=== PATIENT | male | born 1965 | race African-American/Black ===

== ENCOUNTER 2017-11-23 17:19 | Emergency (ER) | payer OTHER ==
[~2017-11-23] VITALS: Ht 170.2 cm; Wt 103.4 kg
--- OUTSIDE RECORDS SUMMARY | 2017-11-23 17:21 | XMS REPORT | Clinical Summary ---
Author Author [facility] Address Unknown Phone Unavailable Care Team Providers Care Nurse Transition Name Role Phone PCP Unavailable Allergies No Known Allergies Current Medications Prescription Sig. Disp. Refills Start End Date Status Date lisinopril Take 20 mg by mouth Active (PRINIVIL,ZESTRIL) 20 MG daily. tablet acetaminophen-codeine Take 1-2 tablets by mouth 15 tablet 0 08/25/20 09/04/20 (TYLENOL #3) 300-30 mg every 6 (six) hours as 17 17 per tablet needed for Pain for up to 10 days. Max Daily Amount: 8 tablets cyclobenzaprine Take 1 tablet (10 mg 20 tablet 0 08/25/20 09/04/20 (FLEXERIL) 10 MG tablet total) by mouth 2 (two) 17 17 times daily as needed for Muscle spasms for up to 10 days. Active Problems Not on file Encounters Date Type Specialty Care Team Description 08/25/2017 Emergency Emergency Medicine Radha Gonzalez MD Low back pain without - sciatica, unspecified 08/26/2017 back pain laterality, unspecified chronicity (Primary Dx);Hematuria, unspecified type;Abdominal aortic aneurysm (AAA) without rupture (HCC) after 11/22/2016 Social History Tobacco Use Types Packs/Day Years Used Date Never Smoker Smokeless Tobacco: Never Used Alcohol Use Drinks/Week oz/Week Comments Yes Sex Assigned at Date Recorded Not on file Last Filed Vital Signs Vital Sign Reading Time Taken Blood Pressure 176/90 08/25/2017 10:11 PM [employer] Pulse 76 08/25/2017 10:11 PM [employer]RNAMENT [employer] Temperature 36.8 C (98.2 F) 08/25/2017 8:17 PM ORNAMENT MAK[employer] HAND Respiratory Rate 16 08/25/2017 10:11 PM ORNAMENT MAK[employer] HAND Oxygen Saturation 99% 08/25/2017 10:11 PM ORNAMENT MAKER HAND Inhaled Oxygen - - Concentration Weight 104.8 kg (231 lb) 08/25/2017 8:17 PM ORNAMENT MAK[employer] Height 170.2 cm (5' 7") 08/25/2017 8:17 PM ORNAMENT MAK[employer] HAND Body Mass Index 36.18 08/25/2017 8:17 PM ORNAMENT MAKER HAND Plan of Treatment Not on file Results * CT abdomen/pelvis without iv contrast (08/25/2017 9:46 PM) Specimen Performing Laboratory [employer] Narrative FINAL REPORT CT abdomen and pelvis without intravenous contrast. INDICATION: Hematuria BACK PAIN COMPARISON: No prior studies available for comparison. TECHNIQUE: Multiple contiguous transaxial images of the abdomen and pelvis were obtained without intravenous contrast.This exam was performed according to our departmental dose optimization program which includes automated exposure control, adjustment of the mA and/or kV according to patient size and/or use of iterative reconstructive technique. FINDINGS: Lack of intravenous contrast limits evaluation of the parenchymal and vascular organs. The lung bases demonstrate mild atelectasis. The osseous structures demonstrate mild degenerative changes. The unenhanced liver, spleen, pancreas, and adrenal glands are unremarkable. The gallbladder is unremarkable. There is no biliary dilatation. The stomach is mildly distended containing ingested material. Small fat containing umbilical and upper ventral hernias are noted. Both kidneys demonstrate mild medullary nephrocalcinosis bilaterally without obstructing stones, hydronephrosis or hydroureter. 1.0 cm cysts are seen in the lower pole of the left kidney and upper pole of the right kidney. The urinary bladder is unremarkable. Small fat-containing right inguinal hernia is seen. There is no free fluid in the abdomen and pelvis. There is nonspecific lobulated renal contour specially in the left lower pole. Evaluation for renal or urothelial mass is suboptimal on this noncontrast examination. There is no bowel obstruction or perforation. The appendix appear within normal limits. The small bowel loops are not dilated. There is no fluid collection or lymphadenopathy. Atherosclerotic vascular calcifications are seen with mild aneurysmal dilatation of the abdominal aorta above the aortic bifurcation measuring 3.0 x 2.8 cm. Nonspecific prominent bilateral inguinal lymph nodes are likely reactive or inflammatory in nature. IMPRESSION: 1. Mild medullary nephrocalcinosis without obstructing stones, hydronephrosis or hydroureter. Small renal cysts. 2. Small fat-containing umbilical and upper ventral hernias. 3. Abdominal aortic aneurysm measuring up to 3.0 cm. Recommend follow-up every three years per best practice guidelines. Signed: Caesar Nance MD Report Verified Date/Time:08/25/2017 22:08:12 Reading Location: [facility] [id number] Ortho Consult Reading Room Procedure Note Interface, External Ris In - 08/25/2017 10:10 PM ORNAMENT MAKER HAND FINAL REPORT CT abdomen and pelvis without intravenous contrast. INDICATION: Hematuria BACK PAIN COMPARISON: No prior studies available for comparison. TECHNIQUE: Multiple contiguous transaxial images of the abdomen and pelvis were obtained without intravenous contrast. This exam was performed according to our departmental dose optimization program which includes automated exposure control, adjustment of the mA and/or kV according to patient size and/or use of iterative reconstructive technique. FINDINGS: Lack of intravenous contrast limits evaluation of the parenchymal and vascular organs. The lung bases demonstrate mild atelectasis. The osseous structures demonstrate mild degenerative changes. The unenhanced liver, spleen, pancreas, and adrenal glands are unremarkable. The gallbladder is unremarkable. There is no biliary dilatation. The stomach is mildly distended containing ingested material. Small fat containing umbilical and upper ventral hernias are noted. Both kidneys demonstrate mild medullary nephrocalcinosis bilaterally without obstructing stones, hydronephrosis or hydroureter. 1.0 cm cysts are seen in the lower pole of the left kidney and upper pole of the right kidney. The urinary bladder is unremarkable. Small fat-containing right inguinal hernia is seen. There is no free fluid in the abdomen and pelvis. There is nonspecific lobulated renal contour specially in the left lower pole. Evaluation for renal or urothelial mass is suboptimal on this noncontrast examination. There is no bowel obstruction or perforation. The appendix appear within normal limits. The small bowel loops are not dilated. There is no fluid collection or lymphadenopathy. Atherosclerotic vascular calcifications are seen with mild aneurysmal dilatation of the abdominal aorta above the aortic bifurcation measuring 3.0 x 2.8 cm. Nonspecific prominent bilateral inguinal lymph nodes are likely reactive or inflammatory in nature. IMPRESSION: 1. Mild medullary nephrocalcinosis without obstructing stones, hydronephrosis or hydroureter. Small renal cysts. 2. Small fat-containing umbilical and upper ventral hernias. 3. Abdominal aortic aneurysm measuring up to 3.0 cm. Recommend follow-up every three years per best practice guidelines. Signed: Caesar Nance MD Report Verified Date/Time: 08/25/2017 22:08:12 Reading Location: [facility] C013X Ortho Consult Reading Room * Urinalysis w/Microscopic + Reflex to Culture (08/25/2017 8:51 PM) Component Value Ref Range Color, UA Yellow Clarity, UA Clear Specific [place], UA 1.015 1.001 - 1.035 pH, UA 6.5 5.0 - 8.0 Protein, UA Negative Negative Glucose, UA Negative Negative Ketones, UA Negative Negative Bilirubin, UA Negative Negative Blood, UA Small (A) Negative Nitrite, UA Negative Negative Leukocytes, UA Negative Negative Urobilinogen, UA 1.0 0.2 - 1.0 mg/dL Bacteria, UA Rare Mucus Few RBC, UA 5-10 /HPF WBC, UA <5 /HPF SQUAMOUS EPITHELIAL <5 /HPF Specimen Source Specimen Performing Laboratory Urine [facility] [address] [place] [id number] after 11/22/2016
--- OUTSIDE RECORDS SUMMARY | 2017-11-23 17:21 | XMS REPORT ---
Author Author Admin, [place] Organization [facility] Address Unknown Phone Unavailable Allergies, Adverse Reactions, Alerts Allergy Name Reaction Description Start Date Severity Status Provider No Known Allergies Geoff Rai MA Conditions or Problems Problem Name Problem Code Onset Date Status Entry Date Provider Comment Standard Description Annotate Lumbago with sciatica, right side 724.3 Active Viola Pringle DO Sciatica Exposure to, sexually transmitted disease V01.6 Active Danni Last CAPSULE MACHINE OPERATOR Contact with or exposure to venereal diseases Screening for chlamydial disease V73.98 Active Danni Last CAPSULE MACHINE OPERATOR Screening examination for unspecified chlamydial disease Special screening examination for other specified viral diseases V73.89 07/15 Active Danni Last APRN Screening examination for other specified viral diseases BMI 36.0-36.9 Active Danni aLst CAPSULE MACHINE OPERATOR Body Mass Index 36.0-36.9, adult Encounter for immunization V05.9 Active Danni Last CAPSULE MACHINE OPERATOR Need for prophylactic vaccination and inoculation against unspecified single disease Hypertension 401.9 Active Danni Last CAPSULE MACHINE OPERATOR Unspecified essential hypertension Obesity Active Danni Last CAPSULE MACHINE OPERATOR Obesity, unspecified Onychomycosis, toenails 110.1 Active Danni Last CAPSULE MACHINE OPERATOR Dermatophytosis of nail Swollen limb, left hand ICD-729.81 Inactive Danni Last CAPSULE MACHINE OPERATOR Need for prophylactic vaccination with unspecified combined vaccine ICD-V06.9 Inactive Danni Last CAPSULE MACHINE OPERATOR Cerumen ICD-380.4 Inactive Danni Last APRN 2016 Seasonal allergic rhinitis ICD-477.9 Inactive Danni Last APRN Elevated blood pressure without diagnosis of hypertension 796.2 Inactive Danni Last APRN Elevated blood pressure reading without diagnosis of hypertension Swollen limb, left hand 729.81 Resolved Danni Last APRN Swelling of limb Need for prophylactic vaccination with unspecified combined vaccine V06.9 Resolved Danni Last APRN Need for prophylactic vaccination with unspecified combined vaccine Cerumen 380.4 Resolved Danni Last APRN Impacted cerumen Right Seasonal allergic rhinitis 477.9 Resolved Danni Last APRN Allergic rhinitis, cause unspecified Medication List Medication Instructions Start Date Stop Date Generic Name NDC Status Provider Patient Instruction CYCLOBENZAPRINE HCL 10 MG ORAL TABLET 1 By Mouth three times a day as needed for muscle spasm CYCLOBENZAPRINE HCL 88542916590 Active Viola Pino DO Active NAPROXEN 500 MG ORAL TABLET 1 by mouth twice a day as needed for pain and inflammation NAPROXEN 78066457945 Active Viola Pino DO Active NIFEDIPINE ER 90 MG ORAL TABLET EXTENDED RELEASE 24 HOUR 1 tablet by mouth every day NIFEDIPINE 48936830164 Active Danni Last APRN Active FELODIPINE ER 10 MG ORAL TABLET EXTENDED RELEASE 24 HOUR one tablet by mouth at bedtime FELODIPINE ER 10 MG ORAL TABLET EXTENDED RELEASE 24 HOUR FELODIPINE Inactive AMLODIPINE BESYLATE 10 MG ORAL TABLET 1 tab by mouth daily 01/10 AMLODIPINE BESYLATE 10 MG ORAL TABLET 942569 AMLODIPINE BESYLATE Inactive FLONASE ALLERGY RELIEF 50 MCG/ACT NASAL SUSPENSION 1 spray each nostril Every 12 hours x 14 days. FLONASE ALLERGY RELIEF 50 MCG/ACT NASAL SUSPENSION 4968367 FLUTICASONE PROPIONATE Inactive XYZAL 5 MG ORAL TABLET 1 tablet by mouth at bedtime. XYZAL 5 MG ORAL TABLET 262079 LEVOCETIRIZINE DIHYDROCHLORIDE Inactive IBUPROFEN 800 MG ORAL TABLET TK 1 T PO Q 8 H PRN IBUPROFEN 800 MG ORAL TABLET 215877 IBUPROFEN Inactive FELODIPINE ER 10 MG ORAL TABLET EXTENDED RELEASE 24 HOUR one tablet by mouth at bedtime FELODIPINE 15474839870 No Longer Active Danni Last APRN Active AMLODIPINE BESYLATE 10 MG ORAL TABLET 1 tab by mouth daily 01/10 AMLODIPINE BESYLATE 45270281095 No Longer Active Danni Last APRN Active FLONASE ALLERGY RELIEF 50 MCG/ACT NASAL SUSPENSION 1 spray each nostril Every 12 hours x 14 days. FLUTICASONE PROPIONATE 42315728144 No Longer Active Danni Last APRN Active XYZAL 5 MG ORAL TABLET 1 tablet by mouth at bedtime. LEVOCETIRIZINE DIHYDROCHLORIDE 22681548213 No Longer Active Danni Last APRN Active IBUPROFEN 800 MG ORAL TABLET TK 1 T PO Q 8 H PRN IBUPROFEN 76765099439 No Longer Active Viola Pringle DO Active Advance Directives Directive Description Start Date DISCUSSED - NO DECISION MADE Immunizations Vaccine Administration Date Value Standard Description varicella shingles vaccine given varicella virus vaccine hepatitis A immunization #2 given as Hep A/Hep B # 3. hepatitis A vaccine, unspecified formulation hepatitis B vaccine #3 given as Hep A/Hep B # 3. hepatitis B vaccine, unspecified formulation Twinrix, hepatitis A inactivated and hepatitis B (recombinant) vaccine, 3rd dose, given by given hepatitis A and hepatitis B vaccine hepatitis A immunization #2 given as Hep A/Hep B # 2. hepatitis A vaccine, unspecified formulation hepatitis B vaccine #2 given given as Hep A/Hep B # 2. hepatitis B vaccine, unspecified formulation Twinrix, hepatitis A inactivated and hepatitis B (recombinant) vaccine, 2nd dose, administered by given hepatitis A immunization #1 given as Hep A/Hep B # 1. hepatitis A vaccine, unspecified formulation hepatitis B vaccine #1 given given as Hep A/Hep B # 1. hepatitis B vaccine, unspecified formulation Twinrix, hepatitis A inactivated and hepatitis B (recombinant) vaccine, 1st dose given hepatitis A and hepatitis B vaccine Tetanus toxoid, reduced diphtheria toxoid and acellular Pertussis vaccine, absorbed (TdaP) given given tetanus toxoid, reduced diphtheria toxoid, and acellular pertussis vaccine, adsorbed Vital Signs Date Name Value Unit Range Description blood pressure, diastolic, second observation 107 mm[Hg] BP alas blood pressure, diastolic 107 mm[Hg] BP alas blood pressure, systolic, second observation 151 mm[Hg] BP sys blood pressure, systolic 150 mm[Hg] BP sys height E&M 67 [in_us] Bdy height pulse rate E&M 115 /min Heart rate temperature E&M 98.1 [degF] Body temperature weight E&M 228.50 [lb_av] Weight Measured blood pressure, diastolic, second observation 82 mm[Hg] BP alas blood pressure, diastolic 82 mm[Hg] BP alas blood pressure, systolic, second observation 146 mm[Hg] BP sys blood pressure, systolic 146 mm[Hg] BP sys height E&M 67 [in_us] Bdy height pulse rate E&M 64 /min Heart rate temperature E&M 98.1 [degF] Body temperature weight E&M 229.25 [lb_av] Weight Measured blood pressure, diastolic 89 mm[Hg] BP alas blood pressure, systolic 135 mm[Hg] BP sys height E&M 67 [in_us] Bdy height pulse rate E&M 73 /min Heart rate respiratory rate E&M 19 /min Resp rate temperature E&M 98.4 [degF] Body temperature weight E&M 237 [lb_av] Weight Measured blood pressure, diastolic 98 mm[Hg] BP alas blood pressure, systolic 153 mm[Hg] BP sys pulse rate E&M 60 /min Heart rate respiratory rate E&M 20 /min Resp rate temperature E&M 97.7 [degF] Body temperature blood pressure, diastolic 99 mm[Hg] BP alas blood pressure, systolic 155 mm[Hg] BP sys pulse rate E&M 67 /min Heart rate respiratory rate E&M 20 /min Resp rate temperature E&M 98.6 [degF] Body temperature blood pressure, diastolic, second observation 105 mm[Hg] BP alas blood pressure, diastolic 99 mm[Hg] BP alas blood pressure, systolic, second observation 156 mm[Hg] BP sys blood pressure, systolic 163 mm[Hg] BP sys height E&M 67 [in_us] Bdy height pulse rate E&M 68 /min Heart rate temperature E&M 98.4 [degF] Body temperature weight E&M 237.13 [lb_av] Weight Measured blood pressure, diastolic 105 mm[Hg] BP alas blood pressure, systolic 158 mm[Hg] BP sys height E&M 67 [in_us] Bdy height pulse rate E&M 67 /min Heart rate temperature E&M 98.7 [degF] Body temperature weight E&M 236.80 [lb_av] Weight Measured blood pressure, diastolic 100 mm[Hg] BP alas blood pressure, systolic 151 mm[Hg] BP sys height E&M 67 [in_us] Bdy height pulse rate E&M 70 /min Heart rate temperature E&M 98.2 [degF] Body temperature weight E&M 234.38 [lb_av] Weight Measured blood pressure, diastolic, second observation 98 mm[Hg] BP alas blood pressure, diastolic 90 mm[Hg] BP alas blood pressure, systolic, second observation 150 mm[Hg] BP sys blood pressure, systolic 139 mm[Hg] BP sys height E&M 67 [in_us] Bdy height pulse rate E&M 90 /min Heart rate pulse rate #2 88 Heart rate temperature E&M 97.8 [degF] Body temperature weight E&M 232.38 [lb_av] Weight Measured blood pressure, diastolic 93 mm[Hg] BP alas blood pressure, systolic 148 mm[Hg] BP sys height E&M 67 [in_us] Bdy height pulse rate E&M 65 /min Heart rate temperature E&M 98.1 [degF] Body temperature weight E&M 234.20 [lb_av] Weight Measured Diagnostic Results Date Name Value Unit Range Description Lab Report: RPR, Rfx Qn RPR/Confirm TP, Panel [id number], HIV 1/2 Ab Differe ... - Serology rapid plasma reagin antibody, serum Non Reactive Non Reactive hepatitis C antibody, serum <0.1 0.0-0.9 Lab Report: Ct, Ng, Trich vag by ANNA, Chlamydia/GC Amplification - Lab chlamydia DNA probe Negative Negative Lab Report: Ct, Ng, Trich vag by ANNA, Chlamydia/GC Amplification - Microbiology Neisseria gonorrhoeae DNA probe Negative Negative Lab Report: RPR, Rfx Qn RPR/Confirm TP, Panel [id number], HIV 1/2 Ab Differe ... - Toxicology HIV-2 antibodies, western blot Negative Negative Lab Report: RPR, Rfx Qn RPR/Confirm TP, Panel [id number], HIV 1/2 Ab Differe ... - Chemistry hepatitis B surface antigen Negative Negative Lab Report: RPR, Rfx Qn RPR/Confirm TP, Panel [id number], HIV 1/2 Ab Differe ... - Serology HIV-1/HIV-2 Ab, serum Positive Negative Encounters Date Encounter Provider Code Facility 15:06:32 PAN DUMPER Est Patient Exp Problem - 57858 Viola Pringle CPT -74133 [facility] 14:04:51 CDT Est Patient Detailed - 52354 Danni Last CAPSULE MACHINE OPERATOR CPT- 99793 [facility] 17:03:01 CDT Est Patient Detailed - 83586 Jeannine Muñoz LEGAL SUPPORT ANALYST CPT-91455 [facility] 10:43:40 CDT Est Patient Nurse - Only Visit - 09532 Katerin Briceño REPAIRER EVAPORATOR CPT-30769 [facility] 15:50:52 CDT Est Patient Nurse - Only Visit - 97110 Katerin Briceño REPAIRER EVAPORATOR CPT-79235 [facility] 16:07:39 CDT Est Patient Exp Problem - 61452 Danni Last CAPSULE MACHINE OPERATOR CPT-04320 [facility] 15:58:59 CDT Est Patient Exp Problem - 36626 Danni Last CAPSULE MACHINE OPERATOR CPT-86254 [facility] 15:47:10 CDT Est Patient Exp Problem - 52628 Danni Last CAPSULE MACHINE OPERATOR CPT-71887 [facility] 15:54:39 CDT Est Patient Exp Problem - 89943 Johnnohelia Berhane CAPSULE MACHINE OPERATOR CPT-27576 [facility] 12:09:19 PAN DUMPER New Patient Detailed - 86014 Danni Last CAPSULE MACHINE OPERATOR CPT- 00862 [facility] Procedures Code Procedure Name Date Entry Date Standard Description CPT-J1885 Injection, ketorolac tromethamine (toradol), per 15 mg 08:18:56 PAN DUMPER CPT-J8499 Oral / SL / WV 15:01:01 CDT CPT-J8499 Azithromycin oral 15:01:00 CDT CPT-63362 IM or SQ Injection 15:01:00 CDT CPT-J0696 Injection, ceftriaxone sodium, per 250 mg 15:01:00 CDT CPT-68984 Zoster - Shingles 14:05:05 CDT CPT-24208 Admin of Vaccine - Injection - 1 14:05:05 CDT CPT-00161 Handling of specimen for transfer 14:04:56 CDT CPT-38255 Venipuncture 14:04:55 CDT CPT-15016 Twinrix - Adult 10:43:40 CDT CPT-03597 Admin of Vaccine - Injection - 1 10:43:40 CDT CPT-53403 Twinrix - Adult 15:50:53 CDT CPT-80484 Admin of Vaccine - Injection - 1 15:50:53 CDT CPT-84450 Twinrix - Adult 16:07:41 CDT CPT-87542 Admin of Vaccine - Injection - 1 16:07:41 CDT CPT-02788 TDAP 15:59:01 CDT CPT-88645 Admin of Vaccine - Injection - 1 15:59:01 CDT CPT-34520 Ear Irrigation 15:47:12 CDT
--- OUTSIDE RECORDS SUMMARY | 2017-11-23 17:21 | XMS REPORT ---
Author Author [facility] Address Unknown Phone Unavailable Care Team Providers Care Canoe Inspector Name Role Phone MELISSA LIRA Unavailable Unavailable Problems This patient has no known problems. Allergies, Adverse Reactions, Alerts This patient has no known allergies or adverse reactions. Medications This patient has no known medications. Results Test Description Test Time Test Comments Text Results Atomic Results Result Comments CT, ABDOMEN 2017-08-25 22:08:00 Reason for exam:->BACK PAINWhat is the patient's sedation requirement?->No Sedation FINAL REPORT CT abdomen and pelvis without intravenous contrast. INDICATION: HematuriaBACK PAIN COMPARISON: No prior studies available for [...] are likely reactive or inflammatory in nature. IMPRESSION:1. Mild medullary nephrocalcinosis without obstructing stones, hydronephrosis or hydroureter. Small renal cysts.2. Small fat-containing umbilical and upper ventral hernias.3. Abdominal aortic aneurysm measuring up to 3.0 cm. Recommend follow- up every three years per best practice guidelines. Signed: Caesar Nance MDReport Verified Date/Time: 08/25/2017 22:08:12 Reading Location: [facility] B1 C013X Ortho Consult Reading Room Electronically signed by: CAESAR NANCE M.D. on 2016 10:08 PM URINALYSIS W/ REFLEX URINE CULTURE 2017-08-25 21:02:00 COLOR (BEAKER) (test hftl=550) Yellow CLARITY (BEAKER) (test zvzo=654) Clear SPECIFIC GRAVITY UA (BEAKER) (test dnfa=417) 1.015 1.001-1.035 PH UA (BEAKER) (test wsbj=394) 6.5 5.0-8.0 PROTEIN UA (BEAKER) (test liyn=526) Negative Negative GLUCOSE UA (BEAKER) (test kdyv=970) Negative Negative KETONES UA (BEAKER) (test fgoe=823) Negative Negative BILIRUBIN UA (BEAKER) (test hjcn=801) Negative Negative BLOOD UA (BEAKER) (test jgqa=902) Small Negative NITRITE UA (BEAKER) (test fsin=596) Negative Negative LEUKOCYTE ESTERASE UA (BEAKER) (test ktpw=931) Negative Negative UROBILINOGEN UA (BEAKER) (test wqwy=705) 1.0 mg/dL 0.2-1.0 BACTERIA (BEAKER) (test gfng=026) Rare MUCUS (BEAKER) (test tzbv=7083) Few RBC UA-MANUAL (BEAKER) (test xhpy=9643) 5-10 /HPF WBC UA-MANUAL (BEAKER) (test tfoy=3630) <5 /HPF SQUAMOUS EPITHELIAL MANUAL (BEAKER) (test ycmi=8295) <5 /HPF SOURCE(BEAKER) (test hrlb=5418)
[2017-11-23] MEDS ORDERED: IBUPROFEN 600 MG TAB PO STA ×2 (17:42→18:33)
[2017-11-23] MEDS ORDERED: ACETAMINOPHEN 325 MG TAB PO ONE (18:45)
[2017-11-23] MEDS ORDERED: CLONIDINE HCL 0.1 MG TAB PO ONE (19:00)
[2017-11-23 19:58] VITALS: BP 147/79
== END 2017-11-23 19:58 | disposition home or self-care (01) ==
LOC: FSED 17:19
DX: H66.91 Otitis media, unspecified, right ear (principal); I10 Essential (primary) hypertension; H73.011 Bullous myringitis, right ear; Z91.14 Patient's other noncompliance with medication regimen
CPT/HCPCS: 87400; 99282